=== PATIENT | female | born 1980 | race Native Hawaiian/Other Pacific Islander ===

== ENCOUNTER 2017-07-01 00:35 | Outpatient (CLI) | payer OTHER ==
[~2017-07-01 00:35] MED LIST: ADDERALL10 MG PO; LEVO0.1519 PO; TRAM50TA PO
== END 2017-07-01 01:03 | disposition home or self-care (01) ==
LOC: INF 00:35
DX: R11.2 Nausea with vomiting, unspecified (principal)
CPT/HCPCS: 96372; J2405

== ENCOUNTER 2017-07-17 10:25 | Outpatient (CLI) | payer OTHER | END 2017-07-17 11:25 | disposition home or self-care (01) | LOC: LAB 10:25 | DX: E03.8 Other specified hypothyroidism (principal) | CPT/HCPCS: 36415; 84443 ==

== ENCOUNTER 2018-08-06 07:58 | Outpatient (CLI) | payer OTHER | END 2018-08-06 20:06 | disposition home or self-care (01) | LOC: MAMMO 07:58 | DX: N63.20 Unspecified lump in the left breast, unspecified quadrant (principal) ==

== ENCOUNTER 2019-07-15 10:05 | Outpatient (CLI) | payer OTHER ==
[2019-07-15 10:23] LABS: PLATELET COUNT 225 K/uL (152-353)
[2019-07-15 10:30] LABS: POTASSIUM 4.2 mmol/L (3.6-5.2); SODIUM 138 mmol/L (136-145)
== END 2019-07-15 19:42 | disposition home or self-care (01) ==
LOC: LABW 10:05
PROVIDERS: Nurse Practitioner Family
DX: R00.2 Palpitations (principal); E06.3 Autoimmune thyroiditis; E86.0 Dehydration
CPT/HCPCS: 36415; 80053; 81000; 82550; 82553; 84439; 84443; 84481; 84484; 85027; 93005

== ENCOUNTER 2021-03-28 10:27 | Outpatient (CLI) | payer BC ==
[2021-03-28 11:11] LABS: POTASSIUM 4.5 mmol/L (3.6-5.2); SODIUM 140 mmol/L (136-145)
[2021-03-28 15:57] LABS: PLATELET COUNT 236 K/uL (152-353)
== END 2021-03-28 23:03 | disposition home or self-care (01) ==
LOC: LABW 10:27
PROVIDERS: ATTEND Nurse Practitioner Family
DX: R07.89 Other chest pain (principal); E03.8 Other specified hypothyroidism
CPT/HCPCS: 36415; 80053; 82550; 82553; 83520; 84436; 84443; 84481; 84484; 85027; 85379

== ENCOUNTER 2021-05-16 08:36 | Outpatient (CLI) | payer BC | END 2021-05-16 23:28 | disposition home or self-care (01) | LOC: NM 08:36 | PROVIDERS: ATTEND Nurse Practitioner Family | DX: R00.2 Palpitations (principal); Z12.39 Encounter for other screening for malignant neoplasm of breast | CPT/HCPCS: A9500 ==

== ENCOUNTER 2021-05-23 08:57 | Outpatient (CLI) | payer BC | END 2021-05-23 14:54 | disposition home or self-care (01) | LOC: MAMMO 08:57 | PROVIDERS: ATTEND Family Medicine | DX: N63.20 Unspecified lump in the left breast, unspecified quadrant (principal) | CPT/HCPCS: G0279 ==

== ENCOUNTER 2021-08-01 15:45 | Outpatient (CLI) | payer BC ==
[2021-08-01 16:01] LABS: PLATELET COUNT 284 K/uL (152-353)
[2021-08-01 16:09] LABS: POTASSIUM 4.4 mmol/L (3.6-5.2); SODIUM 136 mmol/L (136-145)
== END 2021-08-01 20:09 | disposition home or self-care (01) ==
LOC: LABW 15:45
PROVIDERS: ATTEND Nurse Practitioner Family
DX: E03.8 Other specified hypothyroidism (principal)
CPT/HCPCS: 36415; 80053; 82550; 82553; 84436; 84443; 84481; 84484; 85027